=== PATIENT | female | born 1950 | race Two or more races ===

== ENCOUNTER 2023-01-29 17:41 | Emergency (ER) | payer OTHER ==
[~2023-01-29] VITALS: Ht 165.1 cm; Wt 86.6 kg
[2023-01-29] MEDS ORDERED: PEPCID AC20 MG PO (22:06)
[2023-01-29] MEDS ORDERED: ZOFRAN8 MG PO (22:06)
== END 2023-01-29 22:11 | disposition home or self-care (01) ==
LOC: ER 17:41
DX: R10.9 Unspecified abdominal pain (principal); E11.65 Type 2 diabetes mellitus with hyperglycemia; I10 Essential (primary) hypertension; R11.10 Vomiting, unspecified